=== PATIENT | female | born 2000 | race Two or more races ===

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

== ENCOUNTER 2018-04-17 11:04 | Emergency (ER) | payer SELFPAY ==
[~2018-04-17] VITALS: Ht 165.1 cm; Wt 66.9 kg
[~2018-04-17 11:04] MED LIST: DOXY100T PO
[2018-04-17 12:15] LABS: BILIRUBIN,URINE NEGATIVE (NEG); CLARITY,URINE CLEAR; COLOR,URINE YELLOW; NITRITE,URINE NEGATIVE (NEG); PH,URINE 7.5; PROTEIN,URINE 30 mg/dL (NEG-TRACE)
[2018-04-17 12:24] LABS: SQUAMOUS EPITHELIAL CELL,UR MOD /LPF
[2018-04-17 12:25] LABS: BACTERIA,URINE FEW /HPF (0-FEW); WBC,URINE 20-40 /HPF (0-4)
[2018-04-17] MEDS ORDERED: ONDANSETRON ODT 4 MG TAB.RAPDIS. PO ONE (12:30)
[2018-04-17 12:32] LABS: BASO # 0.1 x10^3/uL (0.0-0.2); BASO % 1 % (0-3); EOS % 0 % (0-3); HEMATOCRIT 41.2 % (36.0-47.0); HEMOGLOBIN 13.9 g/dL (12.0-15.5); LYMPH # 2.4 x10^3/uL (1.0-4.8); LYMPH % 23 % (24-48); MEAN CORPUSCULAR HEMOGLOBIN 29 pg (25-35); MEAN CORPUSCULAR HGB CONC 34 g/dL (31-37); MEAN CORPUSCULAR VOLUME 85 fL (79-100); MONO # 0.6 x10^3/uL (0.0-1.1); MONO % 6 % (0-9); NEUT # 7.5 x10^3uL (1.8-7.7); NEUT % 71 % (31-73); PLATELET COUNT 235 x10^3/uL (140-400); RED BLOOD COUNT 4.85 x10^6/uL (3.50-5.40); RED CELL DISTRIBUTION WIDTH 12.8 % (11.5-14.5); WHITE BLOOD COUNT 10.6 x10^3/uL (4.0-11.0)
[2018-04-17 12:46] LABS: CALCIUM 9.2 mg/dL (8.5-10.1); CREATININE 0.6 mg/dL (0.6-1.0); GFR 128.8; POTASSIUM 3.8 mmol/L (3.5-5.1)
--- NOTE | 2018-04-17 12:47 | RAD ---
EXAM: CHEST 1 VIEW History: Cough COMPARISON: None available. TECHNIQUE: Single portable radiograph of the chest FINDINGS: The cardiac silhouette is unremarkable. The lungs are clear bilaterally. The costophrenic sulci are clear and well demarcated. IMPRESSION: No radiographic evidence of an acute cardiopulmonary process. Electronically signed by: Sulaiman Henderson MD (04/17/2018 12:44 PM) [place] [id number]
--- NOTE | 2018-04-17 12:47 | RAD ---
EXAM: Obstetrics sonogram. HISTORY: Cramping. TECHNIQUE: Transabdominal and transvaginal imaging of the pelvis was performed. COMPARISON: None. FINDINGS: There is a single intrauterine gestational sac with pole and yolk sac. The crown-rump length is 4.3 mm, corresponding with a gestational age of 6 weeks and 1 day and due date of 12/10/2018. The heart rate is normal at 122 bpm. The uterus is normal in size. The ovaries are normal in size and demonstrate normal blood flow. There is a 2.7 cm complex left ovarian cyst. There is no pelvic free fluid. There is hypoechogenicity along the inferior aspect of the gestational sac. However, this is not seen on all images and is likely physiologic rather than due to a subchorionic hematoma. IMPRESSION: 1. Single intrauterine fetus with an estimated gestational age of 6 weeks and 1 day and heart rate of 122 bpm. 2. Suspected 2.7 cm complex left ovarian cyst, likely a hemorrhagic cyst. Electronically signed by: Yesenia Appiah MD (04/17/2018 12:44 PM) [facility]
[2018-04-17 12:51] LABS: ALBUMIN 3.5 g/dL (3.4-5.0); ALBUMIN/GLOBULIN RATIO 0.9 (1.0-1.7); TOTAL BILIRUBIN 0.3 mg/dL (0.2-1.0); TOTAL PROTEIN 7.4 g/dL (6.4-8.2)
[2018-04-17 13:00] VITALS: BP 98/73
[2018-04-17] MEDS ORDERED: CEPH500C PO (13:44)
[2018-04-17] MEDS ORDERED: PROC5TAB34 PO (13:44)
--- NOTE | 2018-04-17 15:27 | PHYS DOC ---
Past Medical History Past Medical History: Asthma Past Surgical History: Other Additional Past Surgical Histo: R EYE Alcohol Use: None Drug Use: Marijuana Social History Narrative: last use yesterday Adult General Chief Complaint Chief Complaint: NAUSEA/VOMITING/DIARRHA HPI HPI Patient is a 17 year old f with cc of vomiting intermittent lower abdominal discomfort and concern about being . The patient is felt this way on off for the past 2 weeks lower abdominal pain is not present right now it was intermittent and it was sharp it went away no fever no dysuria no abnormal vaginal discharge she tells me. She has some right upper quadrant pain that comes and goes as well although that is not present either at this time Review of Systems Review of Systems She has had chest pain in the past as well but none recently Musculoskeletal: Denies back pain or joint pain [] Integument: Denies rash or skin lesions [] Neurologic: Denies headache, focal weakness or sensory changes [] Endocrine: Denies polyuria or polydipsia [] All other systems were reviewed and found to be within normal limits, except as documented in this note. Current Medications Current Medications Current Medications Medications (Trade) Dose Ordered Sig/Nata Start Time Stop Time Status Last Admin Dose Admin Ondansetron HCl (Zofran Odt) 4 mg 1X ONCE 04/17/18 12:30 04/17/18 12:31 DC 04/17/18 12:26 4 MG Allergies Allergies Allergies Coded Allergies Type Severity Reaction Last Updated Verified No Known Drug Allergies 04/17/18 No Physical Exam Physical Exam Constitutional: Well developed, well nourished, no acute distress, non-toxic appearance. [] HENT: Normocephalic, atraumatic, bilateral external ears normal, oropharynx moist, no oral exudates, nose normal. [] Eyes: PERRLA, EOMI, conjunctiva normal, no discharge. [] Neck: Normal range of motion, no tenderness, supple, no stridor. [] Cardiovascular:Heart rate regular rhythm, no murmur [] Lungs & Thorax: Bilateral breath sounds clear to auscultation [] Abdomen: Bowel sounds normal, soft, no tenderness, no masses, no pulsatile masses. [] Skin: Warm, dry, no erythema, no rash. [] Back: No tenderness, no CVA tenderness. [] Extremities: No tenderness, no cyanosis, no clubbing, ROM intact, no edema. [] Neurologic: Alert and oriented X 3, normal motor function, normal sensory function, no focal deficits noted. [] Psychologic: Affect normal, judgement normal, mood normal. [] Current Patient Data Vital Signs Vital Signs Date Time Temp Pulse Resp B/P (MAP) Pulse Ox O2 Delivery O2 Flow Rate FiO2 04/17/18 13:00 78 98/73 (81) 100 Room Air 04/17/18 11:30 20 04/17/18 11:17 98.3 98.3 Lab Values Laboratory Tests Test 04/17/18 11:17 04/17/18 11:28 04/17/18 12:25 Urine Collection Type Unknown Urine Color Yellow Urine Clarity Clear Urine pH 7.5 Urine Specific [place] >=1.030 Urine Protein 30 mg/dL (NEG-TRACE) Urine Glucose (UA) Negative mg/dL (NEG) Urine Ketones (Stick) Trace mg/dL (NEG) Urine Blood Negative (NEG) Urine Nitrite Negative (NEG) Urine Bilirubin Negative (NEG) Urine Urobilinogen Dipstick 1.0 mg/dL (0.2 mg/dL) Urine Leukocyte Esterase Moderate (NEG) Urine RBC 3-5 /HPF (0-2) Urine WBC 20-40 /HPF (0-4) Urine Squamous Epithelial Cells Mod /LPF Urine Bacteria Few /HPF (0-FEW) Urine Mucus Marked /LPF POC Urine HCG, Qualitative Hcg positive (Negative) White Blood Count 10.6 x10^3/uL (4.0-11.0) Red Blood Count 4.85 x10^6/uL (3.50-5.40) Hemoglobin 13.9 g/dL (12.0-15.5) Hematocrit 41.2 % (36.0-47.0) Mean Corpuscular Volume 85 fL (79-100) Mean Corpuscular Hemoglobin 29 pg (25-35) Mean Corpuscular Hemoglobin Concent 34 g/dL (31-37) Red Cell Distribution Width 12.8 % (11.5-14.5) Platelet Count 235 x10^3/uL (140-400) Neutrophils (%) (Auto) 71 % (31-73) Lymphocytes (%) (Auto) 23 % (24-48) L Monocytes (%) (Auto) 6 % (0-9) Eosinophils (%) (Auto) 0 % (0-3) Basophils (%) (Auto) 1 % (0-3) Neutrophils # (Auto) 7.5 x10^3uL (1.8-7.7) Lymphocytes # (Auto) 2.4 x10^3/uL (1.0-4.8) Monocytes # (Auto) 0.6 x10^3/uL (0.0-1.1) Eosinophils # (Auto) 0.0 x10^3/uL (0.0-0.7) Basophils # (Auto) 0.1 x10^3/uL (0.0-0.2) Maternal Serum HCG Beta Subunit 60297 mIU/mL (0-5) H Sodium Level 140 mmol/L (136-145) Potassium Level 3.8 mmol/L (3.5-5.1) Chloride Level 104 mmol/L (98-107) Carbon Dioxide Level 24 mmol/L (21-32) Anion Gap 12 (6-14) Blood Urea Nitrogen 10 mg/dL (7-20) Creatinine 0.6 mg/dL (0.6-1.0) Estimated GFR (Cockcroft-Gault) 128.8 BUN/Creatinine Ratio 17 (6-20) Glucose Level 81 mg/dL (70-99) Calcium Level 9.2 mg/dL (8.5-10.1) Total Bilirubin 0.3 mg/dL (0.2-1.0) Aspartate Amino Transferase (AST) 14 U/L (15-37) L Alanine Aminotransferase (ALT) 14 U/L (14-59) Alkaline Phosphatase 60 U/L (46-116) Total Protein 7.4 g/dL (6.4-8.2) Albumin 3.5 g/dL (3.4-5.0) Albumin/Globulin Ratio 0.9 (1.0-1.7) L Lipase 120 U/L (73-393) Laboratory Tests 04/17/18 12:25 Laboratory Tests 04/17/18 12:25 EKG EKG [] Radiology/Procedures Radiology/Procedures [] Impressions: FINDINGS: The cardiac silhouette is unremarkable. The lungs are clear bilaterally. The costophrenic sulci are clear and well demarcated. IMPRESSION: No radiographic evidence of an acute cardiopulmonary process. Electronically signed by: Sulaiman Henderson MD (04/17/2018 12:44 PM) [facility] DICTATED and SIGNED BY: SULAIMAN HENDERSON MD DATE: 04/17/18 1240 IMPRESSION: 1. Single intrauterine fetus with an estimated gestational age of 6 weeks and 1 day and heart rate of 122 bpm. 2. Suspected 2.7 cm complex left ovarian cyst, likely a hemorrhagic cyst. Electronically signed by: Yesenia Arrington MD (04/17/2018 12:44 PM) [facility] DICTATED and SIGNED BY: YESENIA ARRINGTON MD DATE: 04/17/18 1242 Course & Med Decision Making Course & Med Decision Making Pertinent Labs and Imaging studies reviewed. (See chart for details) []17-year-old female who is 6 weeks IUP present small hemorrhagic ovarian cyst UTI also noted Keflex and Compazine were given she is well- appearing abdomen is benign she was advised to follow-up with her OB doctor as soon as possible for routine first trimester screening. Dragon Disclaimer Dragon Disclaimer This electronic medical record was generated, in whole or in part, using a voice recognition dictation system. Departure Departure Impression: Primary Impression: Urinary tract infection Disposition: HOME, SELF-CARE Condition: STABLE Referrals: URBANO ALEXANDER MD (PCP) Patient Instructions: - First Trimester, [id number] Scripts Prochlorperazine Maleate (Compazine) 5 Mg Tablet 5 MG PO TID PRN for VOMITING, #30 TAB Prov: JUANITA ELIZABETH MD 04/17/18 Cephalexin (CEPHALEXIN) 500 Mg Capsule 1 CAP PO QID, #40 CAP Prov: JUANITA ELIZABETH MD 04/17/18 JUANITA ELIZABETH MD Apr 17, 2018 15:26
== END 2018-04-17 14:20 | disposition home or self-care (01) ==
LOC: ER 11:04
DX: O23.41 Unspecified infection of urinary tract in pregnancy, first trimester (principal); O99.511 Diseases of the respiratory system complicating pregnancy, first trimester; R07.89 Other chest pain; O21.8 Other vomiting complicating pregnancy; R10.11 Right upper quadrant pain; R10.31 Right lower quadrant pain; Z3A.01 Less than 8 weeks gestation of pregnancy
CPT/HCPCS: 36415; 71045; 76801; 76817; 80053; 81001; 81025; 83690; 84702; 85025; 87086; 99284; Q0162

== ENCOUNTER → 2018-07-31 | Outpatient (CLI) | payer OTHER ==
[~2018-07-31] MED LIST changes: +CEPH500C PO; +PROC5TAB34 PO
--- NOTE | 2018-07-31 12:01 | RAD ---
Obstetrical ultrasound, 07/31/2018: HISTORY: follow-up There is a single intrauterine fetus in a breech orientation. The biparietal diameter measures 4.9 cm compatible with a gestational age of 20 weeks and 5 days. The average gestational age based on all of the measurements is 21 weeks and 2 days yielding a sonographic EDC of 12/09/2018. This correlates well with the EDC of 12/10/2018 established on the previous ultrasound exam of 04/17/2018. Normal activity and heart motion were seen. There is a four-chamber heart demonstrating a heart rate of 132 bpm. Fluid is identified in the bladder and stomach. The visualized portions of the kidneys and spine are unremarkable. A three-vessel umbilical cord is identified with a normal cord insertion site. There is a normal amount of amniotic fluid present. The placenta is located posteriorly extending into the fundal region. There is no evidence of placenta previa. The cervical length was estimated at 5.0 cm. The maternal ovaries were not visualized. IMPRESSION: Single viable intrauterine fetus of 21-22 weeks gestational age which has demonstrated normal interval growth since 04/17/2018. Electronically signed by: Kevin Bauer MD (07/31/2018 11:58 AM) [facility]
== END | disposition home or self-care (01) ==
LOC: US 09:42
PROVIDERS: ATTEND Family Medicine
DX: Z3A.21 21 weeks gestation of pregnancy (principal)
CPT/HCPCS: 76805

== ENCOUNTER → 2018-11-11 | Outpatient (CLI) | payer MEDICAID ==
--- NOTE | 2018-11-11 17:18 | KCIC ---
Limited OB ultrasound study Clinical indications: Large for gestational age. COMPARISON: July 31, 2018. Findings: A single intrauterine fetus is seen in cephalic position. heart rate is 144 beats per minute. BPD is 8.52 cm which equals 34 weeks 2 days. HC is 31.78 cm which equals 35 weeks 5 days. AC is 31.28 cm which equals 35 weeks 2 days. FL is 7.06 cm which equals 36 weeks 1 day. Average gestational age by ultrasound is 35 weeks 3 days +/- 3 weeks with an EDC of December 13, 2018. EDC on the previous study was December 09, 2018. Therefore, there has been normal interval growth. Estimated weight is 5 lbs and 14 oz. The anatomy was not evaluated. MAYA using the four quadrant method is 16.1 cm. Cervical length-poorly visualized. A grade 1-2 posterior fundal placenta is seen. No placenta previa and no placenta abruptio is identified. The maternal ovaries are not visualized. Impression: Single IUP in cephalic presentation with gestational age of 35 weeks 3 days. Electronically signed by: Jose G Romero MD (11/11/2018 5:15 PM) [place] [id number]
== END | disposition home or self-care (01) ==
LOC: KCIC US 13:45
PROVIDERS: ATTEND Family Medicine
DX: O36.63X0 Maternal care for excessive fetal growth, third trimester, not applicable or unspecified (principal); Z3A.35 35 weeks gestation of pregnancy
CPT/HCPCS: 76815

== ENCOUNTER 2018-12-09 20:38 | Inpatient (IN) | payer MEDICAID ==
[~2018-12-09] VITALS: Ht 165.1 cm; Wt 76.8 kg
[2018-12-09] MEDS ORDERED: OXYTOCIN 30 UNIT/500 ML PREMIX 500 ML IV PRN (20:45)
[2018-12-09] MEDS ORDERED: IBUPROFEN 400 MG TABLET. PO PRN (20:45)
[2018-12-09] MEDS ORDERED: NALBUPHINE 10 MG/ML AMPUL. IV PRN (20:45)
[2018-12-09] MEDS ORDERED: TERBUTALINE 1 MG/ML VIAL. SQ PRN (20:45)
[2018-12-09] MEDS ORDERED: BUTORPHANOL 2 MG/ML VIAL. IV PRN (20:45)
[2018-12-09] MEDS ORDERED: 0.9 % SODIUM CHLORIDE 10 ML DISP.SYRIN. IV PRN (20:45)
[2018-12-09] MEDS ORDERED: MAG HYDROX/ALUMINUM HYD/SIMETH 30 ML ORAL.SUSP PO PRN (20:45)
[2018-12-09] MEDS ORDERED: ONDANSETRON PF 4 MG/2 ML VIAL. IV PRN (20:45)
[2018-12-09] MEDS ORDERED: ACETAMINOPHEN 325 MG TABLET. PO PRN (20:45)
[2018-12-09] MEDS ORDERED: fentaNYL PF VIAL 100 MCG/2 ML VIAL IV PRN (20:45)
[2018-12-09] MEDS ORDERED: LIDOCAINE 1% PF 30 ML VIAL. INJ PRN (20:45)
[2018-12-09] MEDS ORDERED: DINOPROSTONE 10 MG SUPP.VAG VG ONE (21:00)
[2018-12-09 21:39] LABS: BASO # 0.1 x10^3/uL (0.0-0.2); BASO % 1 % (0-3); EOS # 0.1 x10^3/uL (0.0-0.7); EOS % 1 % (0-3); HEMATOCRIT 35.5 % (36.0-47.0); HEMOGLOBIN 11.8 g/dL (12.0-15.5); LYMPH # 2.5 x10^3/uL (1.0-4.8); LYMPH % 23 % (24-48); MEAN CORPUSCULAR HEMOGLOBIN 27 pg (25-35); MEAN CORPUSCULAR HGB CONC 33 g/dL (31-37); MEAN CORPUSCULAR VOLUME 80 fL (79-100); MONO # 0.7 x10^3/uL (0.0-1.1); MONO % 7 % (0-9); NEUT # 7.5 x10^3/uL (1.8-7.7); NEUT % 70 % (31-73); PLATELET COUNT 221 x10^3/uL (140-400); RED BLOOD COUNT 4.47 x10^6/uL (3.50-5.40); RED CELL DISTRIBUTION WIDTH 14.8 % (11.5-14.5); WHITE BLOOD COUNT 10.8 x10^3/uL (4.0-11.0)
[2018-12-09 21:40] LABS: BILIRUBIN,URINE SMALL (NEG); CLARITY,URINE CLEAR; COLOR,URINE AMBER; NITRITE,URINE NEGATIVE (NEG); PH,URINE 5.5; PROTEIN,URINE NEGATIVE (NEG-TRACE); UROBILINOGEN,URINE 0.2 mg/dL (0.2 mg/dL)
[2018-12-09 21:45] LABS: BACTERIA,URINE 0 /HPF (0-FEW); RBC,URINE RARE /HPF (0-2); SQUAMOUS EPITHELIAL CELL,UR OCC /LPF
[2018-12-09] MEDS: IV RINGERS,LACTATED 1000ML 1,000 ML IV SCH (21:52)
[2018-12-10 00:11] VITALS: BP 111/71
[2018-12-10] MEDS ORDERED: ZOLPIDEM 5 MG TABLET. PO PRN ×2 (01:45→12:15)
[2018-12-10] MEDS ORDERED: OXYTOCIN PREMIX 30 UNIT/500 ML NS BAG. IV ONE (07:30)
[2018-12-10] MEDS ORDERED: OXYTOCIN 30 UNIT/500 ML PREMIX 500 ML IV PRN ×2 (07:30→12:15)
[2018-12-10] MEDS: IV RINGERS,LACTATED 1000ML 1,000 ML IV SCH ×3 (10:39→19:53)
--- NOTE | 2018-12-10 12:08 | PDOC1 ---
OB - History Hx of Present Care: Good Care Ultrasounds: Normal mid trimester US Obstetrical Complications: Other (STD exposure) Medical Complications: None Past Family/Social History * Past Medical, Surgical, Family and Obstetric Histories reviewed from chart. Blood Type: B+ Rubella: Immune RPR/VDRL: Negative GBS Status: Negative HBsAG: Negative OB - Chief Complaint & HPI Date of Admission: Date of Admission: Dec 09, 2018 at 20:38 Chief Complaint/History : 3 Para: 2 EDC: Dec 10, 2018 Reason for admission: induction of labor Indication for induction: history of rapid labor Admission Nurse Assessment Rev: Yes OB - Admission Exam Physical Exam Vitals: VS - Last 72 Hours, by Label Date Time Temp Pulse Resp B/P (MAP) Pulse Ox O2 Delivery O2 Flow Rate FiO2 12/10/18 10:32 18 Room Air 12/10/18 00:11 98.4 130 18 111/71 (84) Room Air 98.4 HEENT: Normal, Nasal Mucosa Normal, Oropharynx Normal, Moist Membranes, Fontanelles Normal Lungs: Clear, Equal Abdomen: Gravid Extremities: Normal Pulses, No tenderness or swelling Reflexes: Normal Cervical Dilatation: 1cm Effacement: 50% Station: -3 Membranes: Intact Amniotic Fluid: Thin Meconium Heart Rate: Normal Accelerations: Accelerations Present Decelerations: No decelerations Short Term Variability: Present Usp Variability: Moderate Contractions on Admission: < 5 Minutes Apart Intensity: SYLVESTER Collazo MD Dec 10, 2018 12:07
[2018-12-10] MEDS ORDERED: SIMETHICONE 80 MG TAB.CHEW PO PRN (12:15)
[2018-12-10] MEDS ORDERED: ACETAMINOPHEN 325 MG TABLET. PO PRN (12:15)
[2018-12-10] MEDS ORDERED: PHENYLEPH/MINERAL OIL/PETROLAT RECTAL OINTMENT TUBE. RC PRN (12:15)
[2018-12-10] MEDS ORDERED: 0.9 % SODIUM CHLORIDE 10 ML DISP.SYRIN. IV PRN (12:15)
[2018-12-10] MEDS ORDERED: MAG HYDROX/ALUMINUM HYD/SIMETH 30 ML ORAL.SUSP PO PRN (12:15)
[2018-12-10] MEDS ORDERED: HYDROcodone/APAP 5/325MG 1 TAB TABLET PO PRN (12:15)
[2018-12-10] MEDS ORDERED: HYDROCORTISONE 1% TOPICAL OINTMENT 30GM TUBE. TP PRN (12:15)
[2018-12-10] MEDS ORDERED: BENZOCAINE 20% TOPICAL AEROSOL SPRAY 57GM CAN. TP PRN (12:15)
[2018-12-10] MEDS ORDERED: MAGNESIUM HYDROXIDE 2,400 MG/30 ML ORAL.SUSP. PO PRN (12:15)
[2018-12-10] MEDS ORDERED: diphenhydrAMINE HCL 25 MG CAPSULE PO PRN (12:15)
[2018-12-10] MEDS ORDERED: MMR per PROTOCOL. MC PRN (12:15)
--- NOTE | 2018-12-10 13:06 | OP ---
DATE OF SURGERY: 12/10/2018 CLINICAL COURSE: This patient is a female with EDC of 12/10/2018, admitted for term induction. She had risk factors of STDs during early , otherwise uncomplicated course. She was GBS negative, admitted for Cervidil cervical ripening and subsequent PET induction. She proceeded rapidly through labor dilating cervix from 1 cm to complete with spontaneous rupture of membranes during labor course. She went precipitously from 8 cm to delivery within less than 10 minutes. Delivery was attended by nursing staff. Placenta was delivered by myself. Vaginal vault was inspected. No lacerations were noted. Cervix was intact. Uterus was firm with Pitocin and palpation. Placenta was intact with 3-vessel cord noted. Infant had Apgars of 8, 9 and 9 with spontaneous cry. The mother and baby return to recovery in stable condition. SYLVESTER GAMEZ MD DR: CHRISTOPHER/jame JOB#: [id number] / [id number]
[2018-12-10] MEDS: IBUPROFEN 400 MG TABLET. PO SCH ×2 (14:00→23:03)
[2018-12-10 14:30] VITALS: BP 105/64
[2018-12-10 15:30] VITALS: BP 100/66
[2018-12-10 17:10] VITALS: BP 110/69
[2018-12-10 21:30] VITALS: BP 96/66
[2018-12-10] MEDS: HYDROcodone/APAP 5/325MG 1 TAB TABLET PO PRN (23:03)
[2018-12-11 02:50] VITALS: BP 98/61
[2018-12-11 04:52] LABS: BASO % 0 % (0-3); EOS # 0.1 x10^3/uL (0.0-0.7); EOS % 1 % (0-3); HEMATOCRIT 30.8 % (36.0-47.0); HEMOGLOBIN 10.2 g/dL (12.0-15.5); LYMPH # 3.3 x10^3/uL (1.0-4.8); LYMPH % 29 % (24-48); MEAN CORPUSCULAR HEMOGLOBIN 27 pg (25-35); MEAN CORPUSCULAR HGB CONC 33 g/dL (31-37); MEAN CORPUSCULAR VOLUME 80 fL (79-100); MONO % 9 % (0-9); NEUT % 61 % (31-73); PLATELET COUNT 180 x10^3/uL (140-400); RED BLOOD COUNT 3.83 x10^6/uL (3.50-5.40); RED CELL DISTRIBUTION WIDTH 14.9 % (11.5-14.5); WHITE BLOOD COUNT 11.4 x10^3/uL (4.0-11.0)
[2018-12-11 07:13] VITALS: BP 108/68
[2018-12-11] MEDS: IBUPROFEN 400 MG TABLET. PO SCH ×3 (07:16→18:10)
[2018-12-11] MEDS: HYDROcodone/APAP 5/325MG 1 TAB TABLET PO PRN ×2 (07:19→22:42)
[2018-12-11] MEDS ORDERED: FERROUS SULFATE 325 MG TABLET. PO SCH (08:00)
--- NOTE | 2018-12-11 13:12 | PDOC ---
PROGRESS NOTES Subjective Subjective Patient doing well 1 day Post . Decrease bleeding and lochia. Good pain control. Tolerating diet and ambulating Objective Objective Vital Signs Date Time Temp Pulse Resp B/P (MAP) Pulse Ox O2 Delivery O2 Flow Rate FiO2 12/11/18 07:19 Room Air 12/11/18 07:13 98.1 69 16 108/68 (81) 99 98.1 Intake and Output 12/11/18 07:00 Intake Total 600 ml Balance 600 ml Intake Oral 600 ml # Voids 4 Physical Exam Abdomen: Normal bowel sounds Heart: Regular rate Extremities: No edema, Other (neg hugo's) General: Alert Lungs: Clear to auscultation Assessment Assessment PPD # 1 Plan Plan of Care Routine Care Comment Review of Relevant I have reviewed the following items anusha (where applicable) has been applied. Labs Laboratory Tests Test 12/09/18 21:15 12/09/18 21:20 12/11/18 04:00 Urine Color [place] Urine Clarity Clear Urine pH 5.5 Urine Specific [place] >=1.030 Urine Protein Negative mg/dL (NEG-TRACE) Urine Glucose (UA) Negative mg/dL (NEG) Urine Ketones (Stick) 15 mg/dL (NEG) Urine Blood Negative (NEG) Urine Nitrite Negative (NEG) Urine Bilirubin Small (NEG) Urine Urobilinogen Dipstick 0.2 mg/dL (0.2 mg/dL) Urine Leukocyte Esterase Small (NEG) Urine RBC Rare /HPF (0-2) Urine WBC 5-10 /HPF (0-4) Urine Squamous Epithelial Cells Occ /LPF Urine Bacteria 0 /HPF (0-FEW) Urine Mucus Mod /LPF White Blood Count 10.8 x10^3/uL (4.0-11.0) 11.4 x10^3/uL (4.0-11.0) Red Blood Count 4.47 x10^6/uL (3.50-5.40) 3.83 x10^6/uL (3.50-5.40) Hemoglobin 11.8 g/dL (12.0-15.5) 10.2 g/dL (12.0-15.5) Hematocrit 35.5 % (36.0-47.0) 30.8 % (36.0-47.0) Mean Corpuscular Volume 80 fL (79-100) 80 fL (79-100) Mean Corpuscular Hemoglobin 27 pg (25-35) 27 pg (25-35) Mean Corpuscular Hemoglobin Concent 33 g/dL (31-37) 33 g/dL (31-37) Red Cell Distribution Width 14.8 % (11.5-14.5) 14.9 % (11.5-14.5) Platelet Count 221 x10^3/uL (140-400) 180 x10^3/uL (140-400) Neutrophils (%) (Auto) 70 % (31-73) 61 % (31-73) Lymphocytes (%) (Auto) 23 % (24-48) 29 % (24-48) Monocytes (%) (Auto) 7 % (0-9) 9 % (0-9) Eosinophils (%) (Auto) 1 % (0-3) 1 % (0-3) Basophils (%) (Auto) 1 % (0-3) 0 % (0-3) Neutrophils # (Auto) 7.5 x10^3/uL (1.8-7.7) 7.0 x10^3/uL (1.8-7.7) Lymphocytes # (Auto) 2.5 x10^3/uL (1.0-4.8) 3.3 x10^3/uL (1.0-4.8) Monocytes # (Auto) 0.7 x10^3/uL (0.0-1.1) 1.0 x10^3/uL (0.0-1.1) Eosinophils # (Auto) 0.1 x10^3/uL (0.0-0.7) 0.1 x10^3/uL (0.0-0.7) Basophils # (Auto) 0.1 x10^3/uL (0.0-0.2) 0.0 x10^3/uL (0.0-0.2) Treponema pallidum Antibody Nonreactive (Nonreactive) Laboratory Tests Test 12/11/18 04:00 White Blood Count 11.4 x10^3/uL (4.0-11.0) Red Blood Count 3.83 x10^6/uL (3.50-5.40) Hemoglobin 10.2 g/dL (12.0-15.5) Hematocrit 30.8 % (36.0-47.0) Mean Corpuscular Volume 80 fL (79-100) Mean Corpuscular Hemoglobin 27 pg (25-35) Mean Corpuscular Hemoglobin Concent 33 g/dL (31-37) Red Cell Distribution Width 14.9 % (11.5-14.5) Platelet Count 180 x10^3/uL (140-400) Neutrophils (%) (Auto) 61 % (31-73) Lymphocytes (%) (Auto) 29 % (24-48) Monocytes (%) (Auto) 9 % (0-9) Eosinophils (%) (Auto) 1 % (0-3) Basophils (%) (Auto) 0 % (0-3) Neutrophils # (Auto) 7.0 x10^3/uL (1.8-7.7) Lymphocytes # (Auto) 3.3 x10^3/uL (1.0-4.8) Monocytes # (Auto) 1.0 x10^3/uL (0.0-1.1) Eosinophils # (Auto) 0.1 x10^3/uL (0.0-0.7) Basophils # (Auto) 0.0 x10^3/uL (0.0-0.2) Medications Current Medications Sodium Chloride (Normal Saline Flush) 3 ml QSHIFT PRN IV AFTER MEDS AND BLOOD DRAWS; Start 12/09/18 at 20:45 Ringer's Solution 1,000 ml @ 125 mls/hr Q8H IV Last administered on 12/10/18at 10:39; Start 12/09/18 at 21:00; Stop 12/10/18 at 19:54; Status DC Nalbuphine HCl (Nubain) 10 mg PRN Q1HR PRN IV Severe labor pain; Start 12/09/18 at 20:45 Butorphanol Tartrate (Stadol) 2 mg PRN Q1HR PRN IV Severe labor pain; Start 12/09/18 at 20:45 Fentanyl Citrate (Fentanyl 2ml Vial) 100 mcg PRN Q30MIN PRN IV Severe pain Last administered on 12/10/18at 10:32; Start 12/09/18 at 20:45 Acetaminophen (Tylenol) 1,000 mg PRN Q6HRS PRN PO MILD PAIN / TEMP; Start 12/09/18 at 20:45 Ondansetron HCl (Zofran) 4 mg PRN Q4HRS PRN IV NAUSEA/VOMITING; Start 12/09/18 at 20:45 Al Hydroxide/Mg Hydroxide (Mylanta Plus Xs) 30 ml PRN Q4HRS PRN PO HEARTBURN / GAS; Start 12/09/18 at 20:45 Terbutaline Sulfate (Brethine) 0.25 mg 1X PRN PRN SQ SEE COMMENTS; Start 12/09/18 at 20:45; Stop 12/10/18 at 20:44; Status DC Lidocaine HCl (Xylocaine 1% Pf 30ml Vial) 30 ml 1X PRN PRN INJ SEE COMMENTS; Start 12/09/18 at 20:45; Stop 12/11/18 at 20:44 Oxytocin/Sodium Chloride 500 ml @ 0 mls/hr CONT PRN IV SEE I/O RECORD Last administered on 12/10/18at 10:39; Start 12/10/18 at 07:30 Oxytocin/Sodium Chloride 500 ml @ 0 mls/hr CONT PRN PRN IV Post delivery bleeding; Start 12/09/18 at 20:45 Ibuprofen (Motrin) 800 mg PRN Q6HRS PRN PO PAIN Last administered on 12/10/18at 13:33; Start 12/09/18 at 20:45 Dinoprostone (Cervidil) 10 mg 1X ONCE VG Last administered on 12/09/18at 21:50; Start 12/09/18 at 21:00; Stop 12/09/18 at 21:01; Status DC Zolpidem Tartrate (Ambien) 5 mg PRN QHS PRN PO INSOMNIA Last administered on 12/10/18at 01:49; Start 12/10/18 at 01:45 Oxytocin/Sodium Chloride (Oxytocin Premix Infusion) 30 unit STK-MED ONCE IV ; Start 12/10/18 at 07:30; Stop 12/10/18 at 08:29; Status DC Sodium Chloride (Normal Saline Flush) 10 ml QSHIFT PRN IV AFTER MEDS AND BLOOD DRAWS; Start 12/10/18 at 12:15 Oxytocin/Sodium Chloride 500 ml @ 62.5 mls/hr CONT PRN IV SEE I/O RECORD; Start 12/10/18 at 12:15; Stop 12/10/18 at 20:14; Status DC Acetaminophen (Tylenol) 650 mg PRN Q6HRS PRN PO MILD PAIN / TEMP; Start 12/10/18 at 12:15 Ibuprofen (Motrin) 800 mg Q8HRS PO Last administered on 12/11/18at 07:16; Start 12/10/18 at 14:00 Magnesium Hydroxide (Milk Of Magnesia) 2,400 mg PRN DAILY PRN PO CONSTIPATION; Start 12/10/18 at 12:15 Al Hydroxide/Mg Hydroxide (Mylanta Plus Xs) 30 ml PRN Q4HRS PRN PO HEARTBURN / GAS; Start 12/10/18 at 12:15 Simethicone (Gas-X) 80 mg PRN AFTMEALHC PRN PO GAS / BLOATING; Start 12/10/18 at 12:15 Diphenhydramine HCl (Benadryl) 25 mg PRN Q6HRS PRN PO ITCHING; Start 12/10/18 at 12:15 Benzocaine (Americaine) 1 spray PRN QID PRN TP TOPICAL PAIN; Start 12/10/18 at 12:15 Phenyleph/Shark Oil/Min Oil/Petrol (Preparation H) 1 james PRN QID PRN RC RECTAL PAIN; Start 12/10/18 at 12:15 Hydrocortisone (Cortaid) 1 james PRN QID PRN TP PERINEAL PAIN; Start 12/10/18 at 12:15 Ferrous Sulfate (Feosol) 325 mg BIDWMEALS PO ; Start 12/11/18 at 08:00 Zolpidem Tartrate (Ambien) 5 mg PRN QHS PRN PO INSOMNIA, MAY REPEAT X1; Start 12/10/18 at 12:15 Info (Do NOT chart on this placeholder) 1 ea 1X PRN PRN MC SEE COMMENTS; Start 12/10/18 at 12:15 Info (Do NOT chart on this placeholder) 1 ea 1X PRN PRN MC SEE COMMENTS; Start 12/10/18 at 12:15 Acetaminophen/ Hydrocodone Bitart (Lortab 5/325) 1 tab PRN Q4HRS PRN PO MODERATE PAIN Last administered on 12/11/18at 07:19; Start 12/10/18 at 12:15 Acetaminophen/ Hydrocodone Bitart (Lortab 5/325) 2 tab PRN Q4HRS PRN PO SEVERE PAIN; Start 12/10/18 at 12:15 Active Scripts Active Compazine (Prochlorperazine Maleate) 5 Mg Tablet 5 Mg PO TID PRN Cephalexin 500 Mg Capsule 1 Cap PO QID Doxycycline Hyclate 100 Mg Tablet 1 Tab PO BID 14 Days Vitals/I & O Vital Sign - Last 24 Hours 12/10/18 12/10/18 12/10/18 12/10/18 14:30 15:30 17:10 21:30 Temp 97.6 97.5 97.9 97.6 97.5 97.9 Pulse 63 70 74 Resp 18 18 18 B/P (MAP) 105/64 (78) 100/66 (77) 110/69 (83) Pulse Ox 98 96 99 O2 Delivery Room Air Room Air Room Air Room Air 12/10/18 12/10/18 12/11/18 12/11/18 21:30 23:03 02:50 07:13 Temp 97.9 97.7 98.1 97.9 97.7 98.1 Pulse 80 67 69 Resp 14 14 16 B/P (MAP) 96/66 (76) 98/61 (73) 108/68 (81) Pulse Ox 97 99 98 99 O2 Delivery Room Air Room Air Room Air 12/11/18 07:19 O2 Delivery Room Air Intake and Output 12/10/18 12/10/18 12/11/18 15:00 23:00 07:00 Intake Total 200 ml 400 ml Balance 200 ml 400 ml SYLVESTER GAMEZ MD Dec 11, 2018 13:12
[2018-12-11 15:25] VITALS: BP 108/63
[2018-12-11 19:45] VITALS: BP 107/66
--- NOTE | 2018-12-11 20:34 | NUR ---
Patient care assumed at this time.
[2018-12-12] MEDS: HYDROcodone/APAP 5/325MG 1 TAB TABLET PO PRN (02:44)
[2018-12-12] MEDS: IBUPROFEN 400 MG TABLET. PO SCH ×2 (06:12→10:52)
[2018-12-12 06:17] VITALS: BP 96/57
[2018-12-12 10:47] VITALS: BP 104/62
--- NOTE | 2018-12-12 13:08 | PDOC3 ---
OB DISCHARGE SUMMARY DATE OF ADMISSION: 12/09/18 DATE OF DISCHARGE: 12/12/18 REASON FOR ADMISSION: Induction of labor, SROM INTRAPARTUM PROCEDURES: Others (Precipetus delivery) DISCHARGE INFORMATION: Activity (no sexual activity 6 weeks) HOSPITAL COURSE normal CONDITION AT DISCHARGE Stable PPD # 2 SYLVESTER GAMEZ MD Dec 12, 2018 13:08
[2018-12-12] MEDS ORDERED: HYDR-2761 PO (13:10)
[2018-12-12] MEDS ORDERED: IBUP-1027 PO (13:10)
--- NOTE | 2018-12-12 13:17 | NUR ---
SS following up with referral regarding high score on post depression scale. Per RN no substance use noted. SS made referral to PAT team for assessment. Héctor met with pt to assess and provided resources. SS met with infants mother to assess the circumstances surrounding the referral. Mother reported that she lives at home with spouse and other children. She reported that family doctor and economics professor is Dr. Zion Enciso. She reported no behavioral health history. Mother reported having good family support and good transportation. Mother reported that she is on WIC and has Medicaid and has all supplies needed for infant to include car seat. No other concerns noted. RN notified.
[2018-12-12 15:00] VITALS: BP 100/65
--- NOTE | 2018-12-12 15:52 | NUR ---
home instructions gone over with pt and signed no questions on home care
== END 2018-12-12 16:10 | disposition home or self-care (01) | DRG 806 ==
LOC: 3 SO LND 20:38 → 3 NORTH 12-10 14:30
PROVIDERS: ADMIT Family Medicine; ATTEND Family Medicine
PROC: 10E0XZZ Delivery of Products of Conception, External Approach (ICD-10-PCS; principal; 2018-12-10)
PROC: 3E0P7VZ Introduction of Hormone into Female Reproductive, Via Natural or Artificial Opening (ICD-10-PCS; 2018-12-10)
DX: O62.3 Precipitate labor (principal); R71.0 Precipitous drop in hematocrit; Z37.0 Single live birth; Z3A.40 40 weeks gestation of pregnancy; O77.0 Labor and delivery complicated by meconium in amniotic fluid; O75.89 Other specified complications of labor and delivery
CPT/HCPCS: 36415; 81001; 85025; 86592; 86850; 86900; 86901; 87086; 96365; 96375; J2590; J3010; J7120; 99285-25; G0378